=== PATIENT | male | born 1985 | race Caucasian/White ===

== ENCOUNTER 2018-01-13 08:00 | Outpatient (RCR) | payer BC, SELFPAY | END 2018-01-13 08:01 | disposition home or self-care (01) | LOC: OT 08:00 | PROVIDERS: Family Provider Family Medicine; Visit Provider Plastic Surgery | DX: S61.402A Unspecified open wound of left hand, initial encounter (principal) | CPT/HCPCS: 97110; 97140; 97166 ==

== ENCOUNTER 2018-04-26 07:59 | Outpatient (RCR) | payer BC, SELFPAY ==
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
== END 2018-04-26 08:00 | disposition home or self-care (01) ==
LOC: PT 07:59
PROVIDERS: Visit Provider Emergency Medicine
DX: T30.0 Burn of unspecified body region, unspecified degree (principal)
CPT/HCPCS: 97162

== ENCOUNTER → 2018-06-10 12:35 | Outpatient (CLI) | payer BC, SELFPAY ==
--- NOTE | 2018-06-10 12:39 | CT_ITS ---
CT sinus wo con CLINICAL HISTORY:Recurrent sinus infections. Constant nasal congestion. ITS.REASON: sinus swelling ORDERING PHYSICIAN: Alec Kaur MD PATIENT AGE: 33 years COMPARISON: July 2011 CT sinus study. TECHNIQUE:helical CT scanning paranasal sinuses with No IV contrast utilized Axial, sagittal and coronal images are generated and reviewed. All CT scans at this facility use one or more dose reduction techniques, viz.: automated exposure control, ma/kV adjustment per patient size (including targeted exams where dose is matched to indication, i.e. head) or iterative reconstruction technique. . FINDINGS: CT sinuses no contrast Maxillary sinuses.. Moderate size Air-fluid levels are seen in both maxillary sinuses. Left maxillary sinus: diffuse mucosal thickening left which is more pronounced than 2012. Additional the lobulated focal area of polypoid mucosal thickening vs possible retention cyst at roof left maxillary sinus. Right maxillary sinus.: Mild polypoid areas mucosal thickening floor & roof Ethmoid sinuses: Generous diffuse mucosal thickening with opacification of numerous ethmoid air cells bilaterally Frontal sinus. Mucosal thickening ethmoid air cells continues into the portal sinuses with lobulated mucosal thickening most evident at the right frontal sinus. & inferior left frontal sinus. Sphenoid sinus. Mild mucosal thickening bilaterally. The patient actually had a similar pansinusitis pattern in 2012 with slight progression since then, particularly at maxillary, ethmoid and frontal sinuses The orbital rims appear intact. The medial wall orbit intact. Portions of the brain identified appear normal. Sella normal Ostiomeatal complex appears occluded bilaterally due to mucosal thickening at maxillary sinuses. Right OMC more so than left Engorgement of left nasal turbinates due to the enlarged middle turbinate, partially occlude the left nasal airway. The right turbinates appear smaller and improved versus 2012 . only scant deviation nasal septum from very slight convexity to the left mid septum IMPRESSION:... 1. Pain sinusitis with Moderate Air-fluid levels in both Maxillary Sinuses-reflecting acute sinusitis superimposed upon chronic sinusitis features patient actually had a similar pansinusitis pattern in 2012 but today's scan shows slight progressive areas mucosal thickening since then, at the maxillary, ethmoid & frontal sinuses Engorgement of left turbinates more so than right.. .
== END ==
PROVIDERS: PCP Family Medicine; Visit Provider Otolaryngology
DX: G47.33 Obstructive sleep apnea (adult) (pediatric) (principal)
CPT/HCPCS: 70486

== ENCOUNTER → 2018-07-13 14:23 | Outpatient (CLI) | payer BC, SELFPAY ==
[2018-07-13 14:55] LABS: Basophils # 0.1 K/mm3 (0-0.2); Basophils % 1.2 % (0.1-2.0); Eosinophils # 1.4 K/mm3 (0.0-0.4); Eosinophils % 13.1 % (0.1-12.0); Hemoglobin 15.7 g/dL (14.1-18.0); Lymphocytes % 29.2 % (10-50); Mean Corpuscular HGB Conc 34.2 g/dL (31.8-35.4); Mean Corpuscular Hemoglobin 30.4 pg (27.0-31.2); Mean Platelet Volume 8.6 fl (7.4-10.4); Monocytes # 0.6 K/mm3 (0.1-1.0); Monocytes % 5.8 % (1.7-9.3); Neutrophils # 5.2 K/mm3 (1.8-7.8); Neutrophils % 50.7 % (37.0-80.0); Platelet Count 224 K/mm3 (142-424); Red Blood Count 5.18 M/mm3 (4.60-6.20); Red Cell Distribution Width 13.5 % (11.5-17.5); White Blood Count 10.3 K/mm3 (4.8-10.8)
[2018-07-13 16:07] LABS: Alanine Aminotransferase 50 U/L (12-78); Albumin Level 3.7 gm/dL (3.4-5.0); Albumin/Globulin Ratio 1.2 (1.1-1.8); Alkaline Phosphatase 73 U/L (46-116); Anion Gap 11.9 mEq/L (5-15); Aspartate Amino Transferase 20 U/L (15-37); Bilirubin,Total 0.4 mg/dL (0.2-1.0); Blood Urea Nitrogen 14 mg/dL (7-18); Calcium 9.2 mg/dL (8.5-10.1); Carbon Dioxide 28 mmol/L (21.0-32.0); Chloride 106 mmol/L (98-107); Creatinine,Serum 0.88 mg/dL (0.70-1.30); Estimated Glomerular Filt Rate 99 ml/min (>60); GFR (African American) 120 ML/MIN (>60); Globulin 3.2 gm/dl (1.3-3.2); Glucose 96 mg/dL (74-106); Potassium 3.9 mmoL/L (3.5-5.1); Sodium 142 mmol/L (136-145); Total Protein,Serum 6.9 gm/dL (6.4-8.2)
== END ==
PROVIDERS: Visit Provider Otolaryngology
DX: Z01.818 Encounter for other preprocedural examination (principal)
CPT/HCPCS: 36415; 80053; 85025; 93005

== ENCOUNTER → 2021-07-08 10:15 | Outpatient (CLI) | payer BC, SELFPAY ==
--- NOTE | 2021-07-08 10:19 | MR_ITS ---
FINAL REPORT CLINICAL HISTORY: LUMBAGO WITH LEFT SIDED SCIATICA FINDINGS: Multiplanar MR imaging of the lumbar spine was performed without contrast. On the sagittal T2-weighted images, there is abnormal decreased signal in the L4-L5 and L5-S1 discs. The vertebrae are of normal height. The vertebral alignment is normal. L1-2: There is no significant canal stenosis or neural foraminal narrowing. L2-3: There is no significant canal stenosis or neural foraminal narrowing. L3-4: There is no significant canal stenosis or neural foraminal narrowing. L4-5: There is a right paracentral disc protrusion with moderate compromise on the right lateral recess. There is mild to moderate right neural foraminal narrowing. L5-S1: There is a left posterolateral disc protrusion with moderate to high-grade compromise on the left lateral recess. IMPRESSION: Right paracentral disc protrusion at L4-L5 with moderate compromise on the right lateral recess and [id number] right neural foraminal narrowing. Left posterolateral disc protrusion at L5-S1 with moderate to high-grade compromise on the left lateral recess. Please correlate with any specific radicular symptoms. Reviewed, Interpreted and Dictated by Asher Smith MD Transcribed by Balwinder Mckay Authenticated by Asher Smith MD on 07/08/2021 12:18:27 PM [facility]
== END ==
PROVIDERS: PCP Family Medicine; Visit Provider Family Medicine
DX: M54.42 Lumbago with sciatica, left side (principal); M51.36 Other intervertebral disc degeneration, lumbar region; M51.26 Other intervertebral disc displacement, lumbar region; G89.29 Other chronic pain
CPT/HCPCS: 72148; 76376

== ENCOUNTER → 2021-07-25 09:59 | Outpatient (POV) | payer BC, SELFPAY ==
[2021-07-25 10:23] VITALS: BP 174/90; PULSE 85; RESP 18; O2SAT 96; BMI 29.7
--- NOTE | 2021-07-25 10:36 | HMH.PMCON ---
Assessment and Plan (1) Degenerative joint disease (DJD) of lumbar spine Status: Chronic Category: Medical Code(s): M47.816 - Spondylosis without myelopathy or radiculopathy, lumbar region (2) Lumbar radiculopathy Status: Chronic Category: Medical Code(s): M54.16 - Radiculopathy, lumbar region (3) Herniated disc Status: Chronic Category: Medical - Assessment and plan all Dx Assessment and Plan for all problems:: Patient does have imaging showing L4-L5 with paracentral disc protrusion and moderate compromise on the right lateral recess along with L5-S1 posterior lateral disc protrusion with moderate to high-grade compromise on the left lateral recess. We will schedule the patient for a lumbar epidural steroid injection L4-L5. He is not on any anticoagulation therapy. We will also give him a month of Lacassine 5 mg 1 tablet p.o. twice daily while he is continuing to work. We will see him back in the clinic after his injection for further evaluation. He is not on any anticoagulation therapy. Patient has had an elevated blood pressure. He does understand his blood pressure will need to be under control prior to the injection. We will see him back after the injection for further evaluation. Patient states he is not diabetic. Possible side effects of corticosteroids have been discussed with the patient. Risks and benefits of the procedure have been explained to the patient. Patient would like to proceed with the procedure. Patient has been instructed to contact the clinic with any concerns before the next appointment. Dr. Kang has reviewed this note and agrees with this plan of care. This note was dictated using voice recognition software and make contain errors or omissions. Risks and benefits of the medication have been explained in detail to the patient. If side effects do present with the medication, patient has been advised to stop the medication immediately and call the clinic. The patient has been advised to consult with his/her primary care provider and pharmacist regarding drug-drug interaction of medications currently prescribed. HPI - Data of Consult Patient: new to practice Consult date: 07/25/21 Requesting Physician: Mila Cox APRN - Consult Narrative Reason for consult: Low back pain History of present illness: Mr. Kevin is a 36 year old male who presents today for consultation for low back pain that started in April 2021. Patient is a [place] and travels often [place]country. He says that he has worse pain with sitting. 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 He is having pain in his left low back with radiation into his left leg. The pain is posterior thigh stopping at the left knee. He says that he can tolerate the pain with standing and walking. He has tried anti-inflammatories?ibuprofen/Aleve with minimal relief. He has tried tramadol and gabapentin as well provided by his primary care provider with minimal relief. Patient's blood pressure is extremely elevated and is being managed by his primary care provider. He is unsure if it is pain related. Patient is also seeing chiropractor and has undergone physical therapy for more than 6 weeks. He has tried continued home stretching. He is having minimal relief. Today, the patient's pain is 5 6 out of 10. CC: Mila Cox APRN [facility] History I have reviewed the patient's past medical history: Yes Medical History: Reports:: Asthma, Hypertension Denies:: Cancer, Diabetes Mellitus Type 1, Diabetes Mellitus Type 2, Internal Pacemaker, MRSA, Seizures *Have you ever received a pneumonia vaccine?: No *Have you received a flu vaccine this season?: No Other Medical History: Denies: Blood Transfusion Reaction Other Surgeries: Yes: Appendectomy, Other. No: Pacemaker Amputation: No Fractures: No - *Social History Smoking Status: Former smoker Tobacco Type: smokeless tobacco Alcohol Intake: never Alcohol Intake Frequency:: holidays/special occ
== END ==
PROVIDERS: Visit Provider Clinical Nurse Specialist Family Health
DX: M47.896 Other spondylosis, lumbar region (principal); M54.16 Radiculopathy, lumbar region
CPT/HCPCS: 99202; G0463

== ENCOUNTER 2021-08-02 08:44 | Day surgery (SDC) | payer BC, SELFPAY ==
[2021-08-02 08:58] VITALS: BP 145/91; BP 147/86; PULSE 55; PULSE 58; RESP 20; TEMP 36.4; O2SAT 98; BMI 43.4
[2021-08-02 09:20] VITALS: BP 136/98; PULSE 70; RESP 20; O2SAT 99
[2021-08-02 09:21] VITALS: BP 177/98; PULSE 68; RESP 20; O2SAT 98
--- NOTE | 2021-08-02 09:26 | HMH.PMPROC ---
- Procedure Date: 08/02/21 Time: 09:26 Anesthesiologist:: Christiano Kang MD Complications:: None Pre-procedure Diagnosis:: Degenerative disc disease of lumbar spine with lumbar radiculopathy symptoms Post-procedure Diagnosis:: Same Indications for Procedure:: Patient is a pleasant 36-year-old white male who we are treating for low back pain with lumbar radiculopathy symptoms. He has increasing pain in the back and radiating down his left leg. He does have some degenerative changes with bulging disc and lateral disc protrusion at L5-S1. We will plan on lumbar epidural steroid injection today to see if this helps with his pain symptoms. Procedure Details:: Informed consent was obtained and the risk and benefits of the procedure was explained to the patient. The patient was taken to the procedure room. The patient was placed prone on the procedure table. The patient was prepped and draped in sterile fashion. C-arm fluoroscopy was used to view the lumbar spine. Skin and subcutaneous tissues were anesthetized using lidocaine. I placed an 18-gauge epidural needle and advanced into the L4-L5 interspace using fluoroscopic guidance and [id number] to air. After confirmation of needle placement in the epidural space with dye I injected 2 mL of lidocaine 1.5% with Depo-Medrol 80 mg. Patient tolerated the procedure well with no complications. Plan and Disposition:: We will follow-up with him in 2 weeks. Will reevaluate his symptoms at that time.
== END 2021-08-02 09:33 | disposition home or self-care (01) ==
LOC: SC.PAINP 08:45
PROVIDERS: PCP Family Medicine; Visit Provider Anesthesiology
DX: M51.16 Intervertebral disc disorders with radiculopathy, lumbar region (principal); I10 Essential (primary) hypertension; J45.909 Unspecified asthma, uncomplicated; Z72.0 Tobacco use; M19.90 Unspecified osteoarthritis, unspecified site; Z90.49 Acquired absence of other specified parts of digestive tract
CPT/HCPCS: 62323; J1040; Q9966